=== PATIENT | female | born 1955 ===

== ENCOUNTER 2017-05-28 14:17 | Outpatient (CLI) | payer BC ==
--- NOTE | 2017-05-28 15:30 | DEXA Report ---
DEXA SCAN: 05/28/2017 CLINICAL INDICATION: Postmenopausal. TECHNIQUE: Dual energy x-ray absorptiometry (DXA) was performed on a [employer] system. Regions measured are the AP spine, femoral neck, and, if needed, forearm. COMPARISON: None. In accordance with the International Society for Clinical Densitometry (ISCD) guidelines, data from previous exams may be reanalyzed using current recommendations and techniques. This is done to allow a more accurate basis for comparison with the current study. FINDINGS LUMBAR SPINE DATA: REGION BMD (g/cm/cm) T-SCORE Z-SCORE L1 0.900 -1.9 -0.4 L2 0.934 -2.2 -0.7 L3 1.015 -1.5 0.0 L4 1.069 -1.1 0.4 TOTAL L1-L4 0.987 -1.6 -0.1 NOTE: All evaluable vertebrae are used for classification. HIP DATA: REGION BMD (g/cm/cm) T-SCORE Z-SCORE Neck 0.784 -1.8 -0.4 TOTAL 0.764 -1.9 -0.8 NOTE: The femoral neck or total proximal femur, whichever is lowest, is used for classification. IMPRESSION THE WHO CLASSIFICATION BASED ON THE INTERNATIONAL REFERENCE STANDARD: OSTEOPENIA. FRACTURE RISK: INCREASED. RECOMMENDATION: Patients with diagnosis of osteoporosis or osteopenia should have regular bone mineral density assessment. For those eligible for Medicare, routine testing is allowed once every 2 years. Testing frequency can be increased for patients who have rapidly progressing disease or for those who are receiving medical therapy to restore bone mass. COMMENT: World Health Organization (WHO) definitions for osteoporosis and osteopenia: NORMAL BMD: T-score at -1.0 or higher, fracture risk is low. OSTEOPENIA BMD: T-score between -1.0 and -2.5, fracture risk is increased. OSTEOPOROSIS BMD: T-score at -2.5 or lower, fracture risk high. National Osteoporosis Foundation recommends: 1. Obtain adequate dietary calcium (at least 1200 mg per day) and vitamin D (400 -800 international units per day). 2. Participate, as appropriate, in regular weightbearing and muscle- strengthening exercise. 3. Avoid tobacco use and reduce alcohol and caffeine intake. 4. For more detailed information see the website at www.NOF.org. MTDD
== END 2017-05-28 14:18 | disposition home or self-care (01) ==
LOC: DI 14:17
PROVIDERS: ATTEND Family Medicine
DX: M85.89 Other specified disorders of bone density and structure, multiple sites (principal)
CPT/HCPCS: 77080

== ENCOUNTER 2017-07-17 20:45 | Outpatient (CLI) | payer BC ==
[2017-07-17 12:57] LABS: BASOPHILS % (AUTO) 0.7 %; EOSINOPHILS # (AUTO) 0.1 10^3/uL (0.0-0.7); EOSINOPHILS % (AUTO) 2.6 %; HGB - HEMOGLOBIN 14.5 g/dL (12.0-16.0); LYMPHOCYTES # (AUTO) 1.1 10^3/uL (1.5-3.5); LYMPHOCYTES % (AUTO) 27.4 %; MEAN CORPUSCULAR HEMOGLOBIN 32.4 pg (27.0-31.0); MEAN CORPUSCULAR HGB CONC 37.2 g/dL (32.0-36.0); MEAN PLATELET VOLUME 9.1 fL (7.9-10.8); MONOCYTES # (AUTO) 0.4 10^3/uL (0.0-1.0); MONOCYTES % (AUTO) 10.7 %; NEUTROPHILS # (AUTO) 2.4 10^3/uL (1.5-6.6); NEUTROPHILS % (AUTO) 58.6 %; PLT - PLATELET COUNT 211 10^3/uL (130-450); RED BLOOD COUNT 4.49 10^6/uL (4.20-5.40); RED CELL DISTRIBUTION WIDTH 12.5 % (12.0-15.0); WHITE BLOOD COUNT 4.2 x10^3/uL (4.8-10.8)
[2017-07-17 13:15] LABS: ALBUMIN 4.2 g/dL (3.2-5.5); ALBUMIN/GLOBULIN RATIO 1.3 (1.0-2.2); ALKALINE PHOSPHATASE 52 IU/L (42-121); ALT ALANINE AMINOTRANSFERASE 18 IU/L (10-60); AST ASPARTATE AMINOTRANSFERASE 33 IU/L (10-42); BILIRUBIN,TOTAL 0.7 mg/dL (0.2-1.0); BUN - BLOOD UREA NITROGEN 18 mg/dL (6-20); CALCIUM 9.1 mg/dL (8.5-10.3); CARBON DIOXIDE - CO2 28 mmol/L (21-32); CHLORIDE 101 mmol/L (101-111); CHOL/HDL RATIO 3.1 (<4.4); CHOLESTEROL 225 mg/dL; CREATININE 0.8 mg/dL (0.4-1.0); GFR - MDRD 72 (>89); GLUCOSE 107 mg/dL (70-100); HDL CHOLESTEROL 73 mg/dL; LDL CHOLESTEROL,CALCULATED 134 mg/dL; LDL/HDL RATIO 1.8 (<4.4); SODIUM 134 mmol/L (135-145); TOTAL PROTEIN 7.4 g/dL (6.7-8.2); VLDL CHOLESTEROL 18 mg/dL
[2017-07-17 13:50] LABS: HB2 TOTAL 15.2 g/dL; HEMOGLOBIN A1C 0.55 g/dL; HEMOGLOBIN A1C % 5.5 % (4.6-6.2)
== END 2017-07-17 20:46 | disposition home or self-care (01) ==
LOC: LAB.WCP 20:45
PROVIDERS: ATTEND Family Medicine
DX: Z00.00 Encounter for general adult medical examination without abnormal findings (principal)
CPT/HCPCS: 36415; 80053; 80061; 83036; 84443; 85025

== ENCOUNTER 2018-08-01 15:52 | Outpatient (CLI) | payer BC ==
--- NOTE | 2018-08-02 08:23 | Mammography Report ---
Reason: SCREENING MAMMO Procedure Date: 08/01/2018 Accession Number: [id number] / [id number] Procedure: MGN - Screening Mammo Dig Bilat CPT Code: FULL RESULT: EXAM: Screening Mammo Dig Bilat DATE: 08/01/2018 4:10 PM CLINICAL HISTORY: Screening encounter. History of nulliparity. TECHNIQUE: Bilateral CC and MLO views were obtained. COMPARISON: 07/10/2017 through 12/04/2014. FINDINGS: The breasts demonstrate scattered fibroglandular densities bilaterally. No suspicious masses, clustered microcalcifications, or regions of architectural distortion are identified. IMPRESSION: Negative examination RECOMMENDATION: Routine annual screening unless otherwise clinically indicated. BIRADS CATEGORY 1: Negative STANDARD QUALIFYING STATEMENTS: 1. This examination was reviewed with the aid of Computer-Aided Detection (CAD). 2. A negative or benign imaging report should not preclude biopsy if clinically suspicious findings are present. 3. Dense breasts may obscure an underlying neoplasm. 4. This examination was reviewed without the aid of 3D breast imaging (tomosynthesis).
== END 2018-08-01 15:53 | disposition home or self-care (01) ==
LOC: DI.N 15:52
DX: Z12.31 Encounter for screening mammogram for malignant neoplasm of breast (principal)
CPT/HCPCS: 77067

== ENCOUNTER 2018-09-17 16:19 | Outpatient (CLI) | payer BC ==
--- NOTE | 2018-09-18 09:06 | XRAY Report ---
Reason: PELVIC,THIGH, KNEE PAIN RIGHT Procedure Date: 09/17/2018 Accession Number: [id number] / [id number] Procedure: XR - Shoulder 2 View LT CPT Code: FULL RESULT: EXAM: LEFT SHOULDER RADIOGRAPHY EXAM DATE: 09/17/2018 05:03 PM. CLINICAL HISTORY: Chronic left shoulder pain. No known trauma. COMPARISON: None. TECHNIQUE: 3 views. FINDINGS: Bones: Normal. No fracture or bone lesion. Joints: Mild marginal osteophyte inferior humeral head and inferior glenoid margin. Other joint spaces within normal limits. Soft tissues: The visualized hemithorax is unremarkable. No soft tissue swelling. IMPRESSION: Mild degenerative arthritis of the glenohumeral joint. No fracture. RADIA
--- NOTE | 2018-09-18 09:11 | XRAY Report ---
Reason: PELVIC,THIGH, KNEE PAIN RIGHT Procedure Date: 09/17/2018 Accession Number: [id number] / [id number] Procedure: XR - Knee 3 View RT CPT Code: FULL RESULT: EXAM: RIGHT KNEE RADIOGRAPHY EXAM DATE: 09/17/2018 05:03 PM. CLINICAL HISTORY: Chronic right knee pain. No known trauma. COMPARISON: None. TECHNIQUE: 3 views. FINDINGS: Bones: Normal. No fractures or bone lesions. Joints: Normal. No effusion. No subluxations. Soft Tissues: Normal. No soft tissue swelling. IMPRESSION: Normal knee radiography. RADIA
--- NOTE | 2018-09-18 09:11 | XRAY Report ---
Reason: PELVIC,THIGH, KNEE PAIN RIGHT Procedure Date: 09/17/2018 Accession Number: [id number] / [id number] Procedure: XR - Pelvis 1 View CPT Code: FULL RESULT: EXAM: PELVIS RADIOGRAPHY EXAM DATE: 09/17/2018 05:03 PM. CLINICAL HISTORY: Chronic right hip pain. No known injury. COMPARISON: None. TECHNIQUE: 1 view. FINDINGS: Bones: Normal. No fracture or bone lesion. Joints: The visualized hip, pubis symphysis, and sacroiliac joints are preserved. No subluxation. Soft Tissues: Normal. No soft tissue swelling. IMPRESSION: Normal pelvis radiography. RADIA
== END 2018-09-17 16:20 | disposition home or self-care (01) ==
LOC: DI 16:19
PROVIDERS: ATTEND Family Medicine
DX: M19.012 Primary osteoarthritis, left shoulder (principal); M25.561 Pain in right knee; R10.2 Pelvic and perineal pain; M79.651 Pain in right thigh
CPT/HCPCS: 72170

== ENCOUNTER 2019-01-09 08:00 | Outpatient (CLI) | payer BC | END 2019-01-09 23:59 | disposition home or self-care (01) | LOC: LAB.WCP 08:00 | PROVIDERS: ATTEND Family Medicine | DX: Z13.89 Encounter for screening for other disorder (principal) | CPT/HCPCS: 36415; 86765 ==